=== PATIENT | male | born 1995 | race Caucasian/White ===

== ENCOUNTER 2017-02-10 16:54 | Emergency (ER) | payer OTHER ==
[~2017-02-10] VITALS: Ht 180.3 cm; Wt 120.0 kg
[2017-02-10 17:12] VITALS: BP 131/76; PULSE 111; RESP 18; TEMP 98.3; O2SAT 97
[2017-02-10 17:58] LABS: AUTOMATED NEUTROPHIL # 7.5 TH/MM3 (1.8-7.7); BASOPHIL % 0.4 % (0.0-2.0); EOSINOPHIL # 0.2 TH/MM3 (0-0.4); EOSINOPHIL % 1.8 % (0.0-4.0); HEMO FLAGS DIFF FINAL; LYMPH % 18.6 % (9.0-44.0); LYMPHOCYTE # 1.9 TH/MM3 (1.0-4.8); MEAN CELL VOLUME 85.2 FL (80.0-100.0); MEAN CORPUSCULAR HEMOGLOBIN 29.2 PG (27.0-34.0); MEAN CORPUSCULAR HGB CONC 34.3 % (32.0-36.0); MONO % 6.3 % (0.0-8.0); NEUT % 72.9 % (16.0-70.0); PLATELET COUNT 350 TH/MM3 (150-450); RED BLOOD COUNT 4.93 MIL/MM3 (4.50-5.90); RED CELL DISTRIBUTION WIDTH 13.3 % (11.6-17.2); WHITE BLOOD COUNT 10.2 TH/MM3 (4.0-11.0)
[2017-02-10 18:26] LABS: ALT (GPT) 83 U/L (12-78); ANION GAP 8 MEQ/L (5-15); AST (GOT) 33 U/L (15-37); BICARBONATE 25.8 MEQ/L (21.0-32.0); BLOOD UREA NITROGEN 12 MG/DL (7-18); CHLORIDE 103 MEQ/L (98-107); GLOMERULAR FILTRATION RATE 107 ML/MIN (>89); POTASSIUM 3.7 MEQ/L (3.5-5.1); SODIUM (NA) 137 MEQ/L (136-145)
[2017-02-10 18:27] LABS: ALKALINE PHOSPHATASE 90 U/L (45-117); TOTAL BILIRUBIN ADULT 0.5 MG/DL (0.2-1.0)
[2017-02-10 18:31] LABS: ALCOHOL LESS THAN 3 MG/DL (0-5)
--- NOTE | 2017-02-10 19:22 | PD ---
HPI Chief Complaint: Psychiatric Symptoms Time Seen by Provider: 18:40 Travel History International Travel<30 days: No Contact w/Intl Traveler<30days: No Traveled to known affect area: No History of Present Illness HPI 21-year-old male that presents to the ED for evaluation of psych. Patient has a history of increasing stress at school and with girlfriend. Per patient his schoolwork has been more overwhelming he feels very stressed so he got in argument and said some things that he didn't really meant. Per patient he is never being Kaplan acted before. He denies a psychiatric illness. No history of medical issues. Patient very concerned because he wants to go home so he can go to school tomorrow and continue his studies. He denies any other medical issues. He has no plan of suicidal ideation. Per patient his symptoms have been worsening this semester secondary to schoolwork and issues with his girlfriend. He has no allergies to medication. Nothing seems to be making them better. PFSH Social History Alcohol Use: No Tobacco Use: No Substance Use: No Allergies-Medications (Allergen,Severity, Reaction): Coded Allergies: No Known Allergies (Unverified , 02/10/17) Review of Systems Except as stated in HPI: all other systems reviewed are Neg Physical Exam Narrative GENERAL: SKIN: Warm and dry. HEAD: Atraumatic. Normocephalic. EYES: Pupils equal and round. No scleral icterus. No injection or drainage. ENT: No nasal bleeding or discharge. Mucous membranes pink and moist. Tongue is midline. No uvula deviation. NECK: Trachea midline. No JVD. CARDIOVASCULAR: Regular rate and rhythm. No murmurs, S3, S4. RESPIRATORY: No accessory muscle use. Clear to auscultation. Breath sounds equal bilaterally. GASTROINTESTINAL: Abdomen soft, non-tender, nondistended. Hepatic and splenic margins not palpable. MUSCULOSKELETAL: Extremities without clubbing, cyanosis, or edema. No obvious deformities. Full range of motion of the upper and lower extremities bilaterally. 2+ pulses bilaterally. NEUROLOGICAL: Awake and alert. No obvious cranial nerve deficits. Motor grossly within normal limits. Five out of 5 muscle strength in the arms and legs. Normal speech. PSYCHIATRIC: Appropriate mood and affect; insight and judgment normal. Data Data Last Documented VS Vital Signs Date Time Temp Pulse Resp B/P (MAP) Pulse Ox O2 Delivery O2 Flow Rate FiO2 02/10/17 17:12 98.3 111 18 131/76 (94) 97 Orders Orders Complete Blood Count With Diff (02/10/17 17:23) Comprehensive Metabolic Panel (02/10/17 17:23) Psych Screen (02/10/17 17:23) Drug Screen, Random Urine (02/10/17 17:23) Alcohol (Ethanol) (02/10/17 17:23) Labs Laboratory Tests Test 02/10/17 17:35 White Blood Count 10.2 TH/MM3 Red Blood Count 4.93 MIL/MM3 Hemoglobin 14.4 GM/DL Hematocrit 42.0 % Mean Corpuscular Volume 85.2 FL Mean Corpuscular Hemoglobin 29.2 PG Mean Corpuscular Hemoglobin Concent 34.3 % Red Cell Distribution Width 13.3 % Platelet Count 350 TH/MM3 Mean Platelet Volume 7.7 FL Neutrophils (%) (Auto) 72.9 % Lymphocytes (%) (Auto) 18.6 % Monocytes (%) (Auto) 6.3 % Eosinophils (%) (Auto) 1.8 % Basophils (%) (Auto) 0.4 % Neutrophils # (Auto) 7.5 TH/MM3 Lymphocytes # (Auto) 1.9 TH/MM3 Monocytes # (Auto) 0.6 TH/MM3 Eosinophils # (Auto) 0.2 TH/MM3 Basophils # (Auto) 0.0 TH/MM3 CBC Comment DIFF FINAL Differential Comment Blood Urea Nitrogen 12 MG/DL Creatinine 0.89 MG/DL Random Glucose 88 MG/DL Total Protein 8.1 GM/DL Albumin 4.3 GM/DL Calcium Level 9.5 MG/DL Alkaline Phosphatase 90 U/L Aspartate Amino Transf (AST/SGOT) 33 U/L Alanine Aminotransferase (ALT/SGPT) 83 U/L Total Bilirubin 0.5 MG/DL Sodium Level 137 MEQ/L Potassium Level 3.7 MEQ/L Chloride Level 103 MEQ/L Carbon Dioxide Level 25.8 MEQ/L Anion Gap 8 MEQ/L Estimat Glomerular Filtration Rate 107 ML/MIN Ethyl Alcohol Level LESS THAN 3 MG/DL MDM Medical Decision Making Medical Screen Exam Complete: Yes Emergency Medical Condition: Yes Medical Record Reviewed: Yes Interpretation(s) CBC & BMP Diagram 02/10/17 17:35 Total Protein 8.1, Albumin 4.3, Calcium Level 9.5, Alkaline Phosphatase 90, Aspartate Amino Transf (AST/SGOT) 33, Alanine Aminotransferase (ALT/SGPT) 83 H, Total Bilirubin 0.5 Differential Diagnosis Depression versus suicidal ideation versus anxiety versus adjustment disorder versus mood disorder versus bipolar disorder versus schizophrenia versus paranoid disorder versus psychosis versus substance abuse versus alcohol abuse versus alcohol induced psychosis versus homicidality addition versus cutting versus personality disorder Narrative Course 21-year-old male that presents to the ED for evaluation of psych. Patient was properly examined and was found to have signs and symptoms consistent with psychiatric illness. Labs were drawn and were essentially unremarkable. Patient was medically cleared. Okay to be seen by psych. Mental health screening was discussed with the patient. Diagnosis Primary Impression: Suicidal ideation Mann Osullivan Feb 10, 2017 19:22
[2017-02-11 07:48] VITALS: BP 131/72; PULSE 85; RESP 14; TEMP 98.5; O2SAT 96
--- NOTE | 2017-02-11 09:46 | PD ---
Physical Exam Date Seen by Provider: Feb 11, 2017 Time Seen by Provider: 09:44 Data Data Last Documented VS Vital Signs Date Time Temp Pulse Resp B/P (MAP) Pulse Ox O2 Delivery O2 Flow Rate FiO2 02/11/17 07:48 98.5 85 14 131/72 (91) 96 Orders Orders Complete Blood Count With Diff (02/10/17 17:23) Comprehensive Metabolic Panel (02/10/17 17:23) Psych Screen (02/10/17 17:23) Drug Screen, Random Urine (02/10/17 17:23) Alcohol (Ethanol) (02/10/17 17:23) Diet Regular Basic (02/11/17 Breakfast) Labs Laboratory Tests Test 02/10/17 17:35 02/10/17 18:45 White Blood Count 10.2 TH/MM3 Red Blood Count 4.93 MIL/MM3 Hemoglobin 14.4 GM/DL Hematocrit 42.0 % Mean Corpuscular Volume 85.2 FL Mean Corpuscular Hemoglobin 29.2 PG Mean Corpuscular Hemoglobin Concent 34.3 % Red Cell Distribution Width 13.3 % Platelet Count 350 TH/MM3 Mean Platelet Volume 7.7 FL Neutrophils (%) (Auto) 72.9 % Lymphocytes (%) (Auto) 18.6 % Monocytes (%) (Auto) 6.3 % Eosinophils (%) (Auto) 1.8 % Basophils (%) (Auto) 0.4 % Neutrophils # (Auto) 7.5 TH/MM3 Lymphocytes # (Auto) 1.9 TH/MM3 Monocytes # (Auto) 0.6 TH/MM3 Eosinophils # (Auto) 0.2 TH/MM3 Basophils # (Auto) 0.0 TH/MM3 CBC Comment DIFF FINAL Differential Comment Blood Urea Nitrogen 12 MG/DL Creatinine 0.89 MG/DL Random Glucose 88 MG/DL Total Protein 8.1 GM/DL Albumin 4.3 GM/DL Calcium Level 9.5 MG/DL Alkaline Phosphatase 90 U/L Aspartate Amino Transf (AST/SGOT) 33 U/L Alanine Aminotransferase (ALT/SGPT) 83 U/L Total Bilirubin 0.5 MG/DL Sodium Level 137 MEQ/L Potassium Level 3.7 MEQ/L Chloride Level 103 MEQ/L Carbon Dioxide Level 25.8 MEQ/L Anion Gap 8 MEQ/L Estimat Glomerular Filtration Rate 107 ML/MIN Ethyl Alcohol Level LESS THAN 3 MG/DL Urine Opiates Screen NEG Urine Barbiturates Screen NEG Urine Amphetamines Screen NEG Urine Benzodiazepines Screen NEG Urine Cocaine Screen NEG Urine Cannabinoids Screen NEG MDM Supervised Visit with ROSARIO: No Narrative Course I was asked to discharge this patient who is brought in on a Kaplan act. He was initially seen by Abhishek Osullivan PA-C and medically cleared. He was then evaluated by NEPTALI Wood who lifted the Kaplan act. Please see their note for details. On my evaluation the patient is alert, oriented, ambulatory, requesting to be discharged. Patient was diagnosed with adjustment order, instructed to seek outpatient counseling. He is stable and discharged home. Diagnosis Primary Impression: Suicidal ideation Additional Impression: Adjustment disorder Qualified Codes: F43.20 - Adjustment disorder, unspecified Referrals: [facility] (Out patient) Additional Instruction: Seek outpatient counseling as discussed with the nurse practitioner. Return to the ED for any urgent or emergent medical condition. Scripts No Active Prescriptions or Reported Meds Disposition: 01 DISCHARGE HOME Condition: Stable Gill Deras Feb 11, 2017 09:46
--- NOTE | 2017-02-11 10:03 | PD ---
History of Present Illness Chief Complaint: Psychiatric Symptoms Time Seen by Provider: 09:20 Travel History International Travel<30 Days: No Contact w/Intl Traveler<30days: No Known affected area: No Legal Status Legal Status: Kaplan Act Kaplan Act Signed By: Jada Cruz Kaplan Act Comment: 02/10/2017 1649 pm [facility]. [facility] #[id number] CASE #[id number] History of Present Illness: History of Present Illness HPI 21-year-old male with no psychiatric history that presents to the ED under a Kaplan act initiated by law enforcement. As per the Kaplan act he made suicdal statements to a friend who called the police. The patient did not make any attempt to harm himself. He states that he has been stressed over a course that he is taking as well as over recent breakup with his girl friend. He was talking to a friend and shared how he was feeling. He denies that he meant what he said and states " That was me talking stupid . I know that if I keep doing what I am doing I am going to feel better". He has not presented nay behavioral dysregulation or suicidality while being monitored. EMR reviewed with no previous contact with [facility] psychiatry. Current toxicology is negative Patient is alert and oriented, calm and engaging. Affect is congruent. He is sad over the breakup but he is not significantly depressed. There is no psychosis, no magali. He denies any suicidal or homicidal ideation, intent or plan. PFSH Past Medical History Medical History: Denies Significant Hx Tetanus Vaccination: Unknown Influenza Vaccination: No Past Surgical History Surgical History: No Previous Surgery Psychiatric History Psychiatric History Hx Psychiatric Treatment: Patient denies any hx of inpatient or outpatient psychiatric treatment. History of Inpatient Treatment: No Guns or firearms in home: Yes (Brother has secured.) Social History Single male . Lives with parents. Attends school. 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 Hx Alcohol Use: No Hx Tobacco Use: No Hx Substance Use: No Hx of Substance Use Treatment: No Family Psychiatric History negative Allergies-Medications (Allergen,Severity, Reaction): Coded Allergies: No Known Allergies (Unverified , 02/10/17) Reported Meds & Prescriptions Reported Meds & Active Scripts Active No Active Prescriptions or Reported Medications Review of Systems Except as stated in HPI: all other systems reviewed are Neg Exam Alert: Yes [place]: Person (ox4) Mood: Calm Affect: Appropriate Speech: Clear, Logical Eye Contact: Normal Memory Intact: Comment (No impairmetn) Hallucinations: Other (Negative) Delusions: No Suicidal: Ideation (Deneis any) Homicidal: Ideation (Deneis any) Insight/Judgement Fair. Not impaired MDM Medical Decision Making Medical Record Reviewed: Yes Assessment/Plan 21-year-old male with no psychiatric history that presents to the ED under a Kaplan act initiated by law enforcement. As per the Kaplan act he made suicdal statements to a friend who called the police. The patient did not make any attempt to harm himself. Patient has presented no behavioral concerns and no suicidality. He is not psychotic and not suicidal or homicidal. He is future oriented. 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 He admits he said some " stupid things" to a friend. He is requesting discharge and does not meet criteria to be retained under a Kaplan act. Does not present evidence of unstable mental illness as per Kaplan act. He contracts for safety. Psychoeducation and support Psychiatrically clear for discharge. Lift BA. Orders Orders Complete Blood Count With Diff (02/10/17 17:23) Comprehensive Metabolic Panel (02/10/17 17:23) Psych Screen (02/10/17 17:23) Drug Screen, Random Urine (02/10/17 17:23) Alcohol (Ethanol) (02/10/17 17:23) Diet Regular Basic (02/11/17 Breakfast) Results Vital Signs Date Time Temp Pulse Resp B/P (MAP) Pulse Ox O2 Delivery O2 Flow Rate FiO2 02/11/17 07:48 98.5 85 14 131/72 (91) 96 02/10/17 17:12 98.3 111 18 131/76 (94) 97 Laboratory Tests Test 02/10/17 17:35 02/10/17 18:45 White Blood Count 10.2 Red Blood Count 4.93 Hemoglobin 14.4 Hematocrit 42.0 Mean Corpuscular Volume 85.2 Mean Corpuscular Hemoglobin 29.2 Mean Corpuscular Hemoglobin Concent 34.3 Red Cell Distribution Width 13.3 Platelet Count 350 Mean Platelet Volume 7.7 Neutrophils (%) (Auto) 72.9 Lymphocytes (%) (Auto) 18.6 Monocytes (%) (Auto) 6.3 Eosinophils (%) (Auto) 1.8 Basophils (%) (Auto) 0.4 Neutrophils # (Auto) 7.5 Lymphocytes # (Auto) 1.9 Monocytes # (Auto) 0.6 Eosinophils # (Auto) 0.2 Basophils # (Auto) 0.0 CBC Comment DIFF FINAL Differential Comment Blood Urea Nitrogen 12 Creatinine 0.89 Random Glucose 88 Total Protein 8.1 Albumin 4.3 Calcium Level 9.5 Alkaline Phosphatase 90 Aspartate Amino Transf (AST/SGOT) 33 Alanine Aminotransferase (ALT/SGPT) 83 Total Bilirubin 0.5 Sodium Level 137 Potassium Level 3.7 Chloride Level 103 Carbon Dioxide Level 25.8 Anion Gap 8 Estimat Glomerular Filtration Rate 107 Ethyl Alcohol Level LESS THAN 3 Urine Opiates Screen NEG Urine Barbiturates Screen NEG Urine Amphetamines Screen NEG Urine Benzodiazepines Screen NEG Urine Cocaine Screen NEG Urine Cannabinoids Screen NEG Diagnosis Primary Impression: Adjustment disorder with emotional disturbance Ruled Out: Suicidal ideation Psychiatrically Cleared: Yes Med/ Other Pt Specific Info: No Meds Exist/No RX given Prescriptions No Active Prescriptions or Reported Meds Disposition: 01 DISCHARGE HOME Condition: Stable Deborah Bravo Feb 11, 2017 10:03
== END 2017-02-11 10:06 | disposition home or self-care (01) ==
LOC: NEDAMB 16:54 → NEPB 02-11 10:06
DX: F43.25 Adjustment disorder with mixed disturbance of emotions and conduct (principal); R45.851 Suicidal ideations
CPT/HCPCS: 80053; 80307; 85025; 99284